=== PATIENT | male | born 1980 | race Caucasian/White ===

== ENCOUNTER 2017-11-29 16:43 | Observation (INO) | payer OTHER ==
--- NOTE | 2017-11-29 17:29 | ERPHSYRPT ---
- History of Present Illness Time Seen by Provider: 11/29/17 17:29 Source: patient, family Patient Subjective Stated Complaint: pt here to be checked out for alcohol abuse , pt is in AA and was sober for 4 days and started drinking today at 1pm pt has drank almost pint of whiskey today , pt was brought in by sister today, Triage Nursing Assessment: pt alert, resp easy, skin w/d, pt smells strongly of alcohol, pt denies wanting to harm self. pt is not wanting help today, he wants to keep family happy Physician History: 37 y/o alcoholic white male presents with "falling off the wagon" after 4 days of not consuming alcohol. after rn discussed with pt, pts sister and [facility], the story appears to be the following: pt told sister he is suicidal. behavioral health counselor at [facility] states pt was obviously intoxicated and would not answer questions except counselor states pt told her he was not suicidal or homicidal. pt was uncooperative at [facility]. pt arrives here alert, cooperative but intoxicated. pt states he is not suicidal or homicidal and needs to go home after visit for his employment. according behavioral health pt has been suicidal in the past. denies cp, abd pain, and denies soa Timing/Duration: today Severity of Symptoms-Max: mild Severity of Symptoms-Current: mild Context related to: other (alcohol) Associated Symptoms: other (intoxicated with alcohol with single statement of suicidalt thoughts to sister. denied to behavioral health counselor and to me) Allergies/Adverse Reactions: lobster Adverse Reaction (Uncoded 11/29/17 17:06) Home Medications: Clonazepam 0.5 mg [Klonopin 0.5 MG] 0.5 mg DAILY 11/29/17 [History] Sildenafil Citrate [Sildenafil] 20 mg DAILY 11/29/17 [History] Hx Influenza Vaccination/Date Given: No Hx Pneumococcal Vaccination/Date Given: No Immunizations Up to Date: Yes - Past Medical History Pertinent Past Medical History: Yes Neurological History: No Pertinent History ENT History: No Pertinent History Cardiac History: No Pertinent History, Hypertension Respiratory History: No Pertinent History Endocrine Medical History: No Pertinent History Musculoskeletal History: No Pertinent History GI Medical History: No Pertinent History History: No Pertinent History Psycho-Social History: Anxiety - Past Surgical History Past Surgical History: Yes Neuro Surgical History: No Pertinent History Cardiac: No Pertinent History Respiratory: No Pertinent History Gastrointestinal: No Pertinent History Genitourinary: No Pertinent History Musculoskeletal: No Pertinent History Male Surgical History: Vasectomy - Social History Smoking Status: Current every day smoker Exposure to second hand smoke: Yes Drug Use: none 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) - Review of Systems Constitutional: No Symptoms, No Fever, No Chills Eyes: No Symptoms, No Discharge, No Eye Pain Ears, Nose, & Throat: No Symptoms, No Ear Pain, No Ear Discharge Respiratory: No Symptoms, No Cough, No Dyspnea, No Stridor, No Wheezing Cardiac: No Symptoms, No Chest Pain, No Palpitations, No Syncope Abdominal/Gastrointestinal: No Symptoms, Abdominal Pain, No Nausea, No Vomiting , No Diarrhea Genitourinary Symptoms: No Symptoms, No Dysuria, No Frequency, No Hematuria Musculoskeletal: No Symptoms, No Back Pain, No Neck Pain Skin: No Symptoms Neurological: No Symptoms, No Dizziness, No Gait Changes, No Headache Psychological: Alcohol Abuse, Anxiety, Suicidal Ideations (denies now but mentioned to sister law researcher) Endocrine: No Symptoms Hematologic/Lymphatic: No Symptoms Immunological/Allergic: No Symptoms All Other Systems: Reviewed and Negative - Nursing Vital Signs Nursing Vital Signs: Initial Vital Signs Temperature 97.0 F 11/29/17 16:58 Pulse Rate 85 11/29/17 16:58 Respiratory Rate 16 11/29/17 16:58 Blood Pressure 144/84 11/29/17 16:58 O2 Sat by Pulse Oximetry 96 11/29/17 16:58 Pain Scale Pain Intensity 0 - Physical Exam General Appearance: no apparent distress, alert Eyes, Ears, Nose, Throat Exam: normal ENT inspection Neck Exam: normal inspection, non-tender, supple, full range of motion Respiratory Exam: normal breath sounds, lungs clear, airway intact, No chest tenderness, No respiratory distress, No accessory muscle use, No rhonchi, No wheezing, No stridor Cardiovascular Exam: regular rate/rhythm, normal heart sounds, normal peripheral pulses Gastrointestinal/Abdominal Exam: soft, No tenderness Extremities Exam: normal inspection, normal range of motion, No evidence of injury, No edema, No tenderness Current Suicidality: denies suicide plan Neurological Exam: alert, calm, adaptive physical education specialist II-XII nml as tested Appearance: appropriate appearance, appropriate insight, neat, no memory impairment Behavior/Eye Contact/Speech: alert & cooperative, good eye contact, intoxicated appearance Thoughts/Hallucinations: normal thought pattern, no apparent hallucination Skin Exam: normal color, warm, dry SpO2 Interpretation: normal SpO2: 96 Oxygen Delivery: Room Air - Course Nursing assessment & vital signs reviewed: Yes EKG Interpreted by Me: RATE (72), NORMAL AXIS, NORMAL INTERVALS, NORMAL QRS, NORMAL ST-T (no comparison) Ordered Tests: Active Orders 24 hr Category Date Time Status Clean Catch Urine Specimen STAT Care 11/29/17 17:39 Active EKG-ER Only STAT Care 11/29/17 17:39 Active Psychiatric Consult STAT Cons 11/29/17 17:40 Active ACETAMINOPHEN Stat Lab 11/29/17 17:50 Completed Alcohol [ETHYL ALCOHOL] Stat Lab 11/29/17 20:55 Completed CBC W DIFF Stat Lab 11/29/17 17:50 Completed CMP Stat Lab 11/29/17 17:50 Completed ETHYL ALCOHOL Stat Lab 11/29/17 17:50 Completed SALICYLATE Stat Lab 11/29/17 17:50 Completed UA W/RFX UR CULTURE Stat Lab 11/29/17 17:50 Completed Urine Triage Profile Stat Lab 11/29/17 17:50 Completed Transfer Order Routine Transfer 11/29/17 Ordered Medication Summary Discontinued Medications Generic Name Dose Route Start Last Admin Trade Name Muraliq PRN Reason Stop Dose Admin Lorazepam 1 mg 11/29/17 20:30 11/29/17 21:19 Ativan 2 Mg/1 Ml Vial IM 11/29/17 20:31 Not Given STAT ONE Lorazepam Confirm 11/29/17 21:03 Ativan 2 Mg/1 Ml Vial Administered 11/29/17 21:04 Dose 2 mg .ROUTE .STK-MED ONE Lorazepam 1 mg 11/29/17 21:12 11/29/17 21:19 Ativan 2 Mg/1 Ml Vial IV 11/29/17 21:13 1 mg STAT ONE Administration Ondansetron HCl 4 mg 11/29/17 17:39 11/29/17 18:57 Zofran Odt 4 Mg PO 11/29/17 17:40 4 mg STAT ONE Administration Ondansetron HCl Confirm 11/29/17 18:56 Zofran Odt 4 Mg Administered 11/29/17 18:57 Dose 4 mg .ROUTE .STK-MED ONE Lab/Rad Data: Laboratory Result Diagrams 11/29/17 17:50 11/29/17 17:50 Laboratory Results 11/29/17 11/29/17 11/29/17 Range/Units 20:55 17:50 17:50 WBC (4.0-10.5) K/mm3 RBC (4.1-5.6) M/mm3 Hgb (12.5-18.0) gm/dl Hct (42-50) % MCV (78-100) fl MCH (26-32) pg MCHC (32-36) g/dl RDW (11.5-14.0) % Plt Count (150-450) K/mm3 MPV (6-9.5) fl Gran % (36.0-66.0) % Eos # (Auto) (0-0.5) Absolute Lymphs (auto) (1.0-4.6) Absolute Monos (auto) (0.0-1.3) Lymphocytes % (24.0-44.0) % Monocytes % (0.0-12.0) % Eosinophils % (0.00-5.0) % Basophils % (0.0-0.4) % Absolute Granulocytes (1.4-6.9) Basophils # (0-0.4) Sodium (137-145) mmol/L Potassium (3.5-5.1) mmol/L Chloride (98-107) mmol/L Carbon Dioxide (22-30) mmol/L Anion Gap (5-15) MEQ/L BUN (9-20) mg/dL Creatinine (0.66-1.25) mg/dL Estimated GFR ML/MIN Glucose (74-106) mg/dL Calcium (8.4-10.2) mg/dL Total Bilirubin (0.2-1.3) mg/dL AST (17-59) U/L ALT (0-50) U/L Alkaline Phosphatase (38-126) U/L Serum Total Protein (6.3-8.2) g/dL Albumin (3.5-5.0) g/dL Urine Color YELLOW (YELLOW) Urine Appearance CLEAR (CLEAR) Urine pH 6.0 (5-6) Ur Specific [place] 1.013 (1.005-1.025) Urine Protein NEGATIVE (Negative) Urine Ketones NEGATIVE (NEGATIVE) Urine Blood NEGATIVE (0-5) Artie/ul Urine Nitrite NEGATIVE (NEGATIVE) Urine Bilirubin NEGATIVE (NEGATIVE) Urine Urobilinogen NEGATIVE (0-1) mg/dL Ur Leukocyte Esterase NEGATIVE (NEGATIVE) U Epithel Cells (Auto) NONE SEEN (FEW) /HPF Urine Culture Reflexed NO (NO) Urine Glucose NEGATIVE (NEGATIVE) mg/dL Salicylates (2-20) mg/dL Urine Opiates Level NEGATIVE (NEGATIVE) Ur Methadone NEGATIVE (NEGATIVE) Acetaminophen (10-30) ug/ml Urine Barbiturates NEGATIVE (NEGATIVE) Ur Phencyclidine (PCP) NEGATIVE (NEGATIVE) Urine Amphetamine NEGATIVE (NEGATIVE) U Benzodiazepine Level NEGATIVE (NEGATIVE) Urine Cocaine NEGATIVE (NEGATIVE) Urine Marijuana (THC) POSITIVE (NEGATIVE) Ethyl Alcohol 190 H (0-10) mg/dL 11/29/17 11/29/17 Range/Units 17:50 17:50 WBC 9.4 (4.0-10.5) K/mm3 RBC 5.05 (4.1-5.6) M/mm3 Hgb 17.6 (12.5-18.0) gm/dl Hct 50.3 H (42-50) % MCV 99.6 (78-100) fl MCH 34.9 H (26-32) pg MCHC 35.0 (32-36) g/dl RDW 12.9 (11.5-14.0) % Plt Count 211 (150-450) K/mm3 MPV 10.7 H (6-9.5) fl Gran % 68.3 H (36.0-66.0) % Eos # (Auto) 0.19 (0-0.5) Absolute Lymphs (auto) 1.96 (1.0-4.6) Absolute Monos (auto) 0.77 (0.0-1.3) Lymphocytes % 20.8 L (24.0-44.0) % Monocytes % 8.2 (0.0-12.0) % Eosinophils % 2.0 (0.00-5.0) % Basophils % 0.7 (0.0-0.4) % Absolute Granulocytes 6.44 (1.4-6.9) Basophils # 0.07 (0-0.4) Sodium 143 (137-145) mmol/L Potassium 4.0 (3.5-5.1) mmol/L Chloride 106 (98-107) mmol/L Carbon Dioxide 23 (22-30) mmol/L Anion Gap 17.9 H (5-15) MEQ/L BUN 6 L (9-20) mg/dL Creatinine 0.57 L (0.66-1.25) mg/dL Estimated GFR > 60.0 ML/MIN Glucose 155 H (74-106) mg/dL Calcium 9.3 (8.4-10.2) mg/dL Total Bilirubin 0.40 (0.2-1.3) mg/dL AST 102 H (17-59) U/L ALT 79 H (0-50) U/L Alkaline Phosphatase 139 H (38-126) U/L Serum Total Protein 8.0 (6.3-8.2) g/dL Albumin 4.7 (3.5-5.0) g/dL Urine Color (YELLOW) Urine Appearance (CLEAR) Urine pH (5-6) Ur Specific [place] (1.005-1.025) Urine Protein (Negative) Urine Ketones (NEGATIVE) Urine Blood (0-5) Artie/ul Urine Nitrite (NEGATIVE) Urine Bilirubin (NEGATIVE) Urine Urobilinogen (0-1) mg/dL Ur Leukocyte Esterase (NEGATIVE) U Epithel Cells (Auto) (FEW) /HPF Urine Culture Reflexed (NO) Urine Glucose (NEGATIVE) mg/dL Salicylates < 1.0 L (2-20) mg/dL Urine Opiates Level (NEGATIVE) Ur Methadone (NEGATIVE) Acetaminophen < 10 L (10-30) ug/ml Urine Barbiturates (NEGATIVE) Ur Phencyclidine (PCP) (NEGATIVE) Urine Amphetamine (NEGATIVE) U Benzodiazepine Level (NEGATIVE) Urine Cocaine (NEGATIVE) Urine Marijuana (THC) (NEGATIVE) Ethyl Alcohol 268 H (0-10) mg/dL - Progress Progress Note: 11/29/17 22:14 additional info provided by sig other when she arrived at 2130 she states he has been suicidal in past and has been stating all week he is suicidal. 11/29/17 22:42 call received from [facility] stating they will not evaluate him until blood etoh less than [address]. called [address] talley. i reviewed pt hx, condition, lab and ekg results. he accepts observation placement in icu, repeat labs in am, ivf and consult [facility] in am Counseled pt/family regarding: lab results, diagnosis - Departure Time of Disposition: 22:44 Departure Disposition: Observation Clinical Impression: Suicidal ideation, Chronic alcoholism Condition: Stable Critical Care Time: No Referrals: MAGDIEL RUSSELL NP [Primary Care Provider] -
[2017-11-29] MEDS ORDERED: ZOFRAN ODT 4 MG PO ONE (17:39)
[2017-11-29 18:01] LABS: Appearance CLEAR (CLEAR); Bilirubin NEGATIVE (NEGATIVE); Blood NEGATIVE Ery/ul (0-5); Glucose NEGATIVE (NEGATIVE); Ketones NEGATIVE (NEGATIVE); Leukocyte Esterase NEGATIVE (NEGATIVE); Nitrite NEGATIVE (NEGATIVE); Protein,Urine Dip NEGATIVE (Negative); Specific Gravity 1.013 (1.005-1.025); Urobilinogen NEGATIVE mg/dL (0-1)
[2017-11-29 18:02] LABS: BASOPHIL % 0.7 % (0.0-0.4); Basophil (Absolute #) 0.07 (0-0.4); Eosinophil (Absolute #) 0.19 (0-0.5); Granulocyte Absolute (ANC) 6.44 (1.4-6.9); Granulocytes % 68.3 % (36.0-66.0); Hematocrit 50.3 % (42-50); Hemoglobin 17.6 gm/dl (12.5-18.0); Lymphocyte (Absolute #) 1.96 (1.0-4.6); Lymphocytes % 20.8 % (24.0-44.0); Mean Cell Volume 99.6 fl (78-100); Mean Corpuscular Hemoglobin 34.9 pg (26-32); Mean Platelet Volume 10.7 fl (6-9.5); Monocyte (Absolute #) 0.77 (0.0-1.3); Monocytes % 8.2 % (0.0-12.0); Platelet Count 211 K/mm3 (150-450); Red Blood Count 5.05 M/mm3 (4.1-5.6); Red Cell Distribution Width 12.9 % (11.5-14.0); White Blood Count 9.4 K/mm3 (4.0-10.5)
[2017-11-29 18:14] LABS: Amphetamine,Urine NEGATIVE (NEGATIVE); Barbiturate,Urine NEGATIVE (NEGATIVE); Benzodiazepine,Urine NEGATIVE (NEGATIVE); Cocaine,Urine NEGATIVE (NEGATIVE); Methadone,Urine NEGATIVE (NEGATIVE); Opiate,Urine NEGATIVE (NEGATIVE); PCP,Urine NEGATIVE (NEGATIVE); THC,Urine POSITIVE (NEGATIVE)
[2017-11-29 18:15] LABS: ALBUMIN 4.7 g/dL (3.5-5.0); ALKALINE PHOSPHATASE 139 U/L (38-126); ANION GAP 17.9 MEQ/L (5-15); BLOOD UREA NITROGEN 6 mg/dL (9-20); CHLORIDE 106 mmol/L (98-107); Calcium 9.3 mg/dL (8.4-10.2); Carbon Dioxide 23 mmol/L (22-30); Creatinine 1 0.57 mg/dL (0.66-1.25); ETHYL ALCOHOL 268 mg/dL (0-10); Glucose 155 mg/dL (74-106); SGOT/AST 102 U/L (17-59); SGPT/ALT 79 U/L (0-50); SODIUM 143 mmol/L (137-145)
[2017-11-29 18:16] LABS: ACETAMINOPHEN < 10 ug/ml (10-30); SALICYLATE < 1.0 mg/dL (2-20)
[2017-11-29] MEDS ORDERED: ZOFRAN ODT 4 MG ONE (18:56)
[2017-11-29] MEDS ORDERED: Ativan 2 MG/1 ML VIAL IM ONE (20:30)
[2017-11-29] MEDS ORDERED: Ativan 2 MG/1 ML VIAL ONE (21:03)
[2017-11-29] MEDS ORDERED: Ativan 2 MG/1 ML VIAL IV ONE (21:12)
[2017-11-30] MEDS ORDERED: PROTONIX 40 MG IV IV SCH ×2 (00:16→22:00)
[2017-11-30] MEDS ORDERED: Zofran 4 MG/2 ML VIAL IV PRN (00:16)
[2017-11-30] MEDS ORDERED: Sodium Chloride 0.9% 1000 ML 1,000 ML ONE (00:49)
[2017-11-30] MEDS: Ativan 2 MG/1 ML VIAL IV PRN ×4 (00:56→15:08)
[2017-11-30] MEDS: Sodium Chloride 0.9% 1000 ML 1,000 ML IV SCH ×2 (01:04→11:29)
[2017-11-30 06:14] LABS: BASOPHIL % 0.9 % (0.0-0.4); Basophil (Absolute #) 0.05 (0-0.4); Eosinophil % 3.6 % (0.00-5.0); Eosinophil (Absolute #) 0.21 (0-0.5); Granulocyte Absolute (ANC) 3.19 (1.4-6.9); Granulocytes % 54.2 % (36.0-66.0); Hematocrit 48.1 % (42-50); Hemoglobin 16.4 gm/dl (12.5-18.0); Lymphocyte (Absolute #) 1.77 (1.0-4.6); Lymphocytes % 30.2 % (24.0-44.0); Mean Cell Volume 101.3 fl (78-100); Mean Corpuscular Hemoglobin 34.5 pg (26-32); Mean Corpuscular Hgb Concent. 34.1 g/dl (32-36); Mean Platelet Volume 10.8 fl (6-9.5); Monocyte (Absolute #) 0.65 (0.0-1.3); Monocytes % 11.1 % (0.0-12.0); Platelet Count 178 K/mm3 (150-450); Red Blood Count 4.75 M/mm3 (4.1-5.6); Red Cell Distribution Width 12.9 % (11.5-14.0); White Blood Count 5.9 K/mm3 (4.0-10.5)
[2017-11-30 06:52] LABS: ALBUMIN 3.7 g/dL (3.5-5.0); ALKALINE PHOSPHATASE 136 U/L (38-126); ANION GAP 13.2 MEQ/L (5-15); BLOOD UREA NITROGEN 7 mg/dL (9-20); CHLORIDE 106 mmol/L (98-107); Calcium 8.9 mg/dL (8.4-10.2); Carbon Dioxide 25 mmol/L (22-30); Creatinine 1 0.56 mg/dL (0.66-1.25); Glucose 123 mg/dL (74-106); SGOT/AST 77 U/L (17-59); SGPT/ALT 56 U/L (0-50); SODIUM 140 mmol/L (137-145); Total Protein 6.7 g/dL (6.3-8.2)
[2017-11-30] MEDS: Vitamins For Infusion 10 ML INJECTION*** 10 ML, THIAMINE 200 MG/2 ML*** 100 MG, FOLNATE... IV SCH ×8 (07:38→07:39)
--- NOTE | 2017-11-30 12:16 | PCM.SSS ---
History of Present Illness - Chief Complaint Chief Complaint: Suicidal ideation and chronic alcoholism History of Present Illness: is a 37 year old male who normally sees Marie PASCAL in the office. He has a longstanding history of alcohol abuse, he has tried to stop and been unsuccessful due to withdrawal symptoms, agitation and anxiety. He was intoxicated and feeling suicidal last night so came to the ER for evaluation. Today he is alert, has no complaints, denies suicidal ideation today but states those are always associated with intoxication. He appears to have guilt about his drinking and does express a desire to get help to stop drinking. - Review of Systems Constitutional: No Fever, No Chills Eyes: No Symptoms Respiratory: No Cough, No Short Of Breath Cardiac: No Chest Pain, No Edema, No Syncope Abdominal/Gastrointestinal: No Abdominal Pain, No Nausea, No Vomiting, No Diarrhea Genitourinary Symptoms: No Dysuria Skin: No Rash Psychological: Alcohol Abuse, Suicidal Ideations, No Hallucinations Medications & Allergies Home Medications: Home Medication List Clonazepam 0.5 mg [Klonopin 0.5 MG] 0.5 mg PO TID PRN 11/29/17 [History Confirmed 11/30/17] Allergies/Adverse Reactions: Allergies Allergy/AdvReac Type Severity Reaction Status Date / Time lobster AdvReac Uncoded 11/29/17 17:06 - Past Medical History Past Medical History: Yes Neurological History: No Pertinent History ENT History: No Pertinent History Cardiac History: Hypertension Respiratory History: No Pertinent History Endocrine Medical History: No Pertinent History Musculoskelatal History: No Pertinent History GI Medical History: GERD, Pancreatitis History: No Pertinent History Pyscho-Social History: Anxiety, Depression, Eating Disorders, Other - Past Surgical History Past Surgical History: Yes Neuro Surgical History: No Pertinent History Cardiac History: No Pertinent History Respiratory Surgery: No Pertinent History GI Surgical History: No Pertinent History Genitourinary Surgical Hx: No Pertinent History Musculskeletal Surgical Hx: No Pertinent History Male Surgical History: Vasectomy - Social History Smoking Status: Current every day smoker How long have you smoked: 22 Exposure to second hand smoke: No Alcohol: Heavy, Daily Drug Use: marijuana - Physical Exam Vital Signs: Vital Signs - 24 hr Temp Pulse Resp BP Pulse Ox 11/30/17 11:55 79 21 97 11/30/17 08:00 63 21 127/79 11/30/17 07:21 66 11/30/17 04:00 98.8 F 64 20 124/73 94 L 11/30/17 00:35 98.6 F 71 24 111/68 93 L 11/30/17 00:30 98.6 F 67 18 111/68 96 11/29/17 23:33 70 16 126/76 96 11/29/17 22:53 96 11/29/17 21:58 68 18 155/91 99 11/29/17 21:15 64 18 123/75 94 L 11/29/17 20:23 79 18 121/68 97 11/29/17 19:00 16 11/29/17 16:58 97.0 F 85 16 144/84 96 General Appearance: no apparent distress, alert Neurologic Exam: alert, oriented x 3, cooperative, normal mood/affect, nml cerebellar function, nml station & gait, sensation nml, No motor deficits Eye Exam: PERRL/EOMI, eyes nml inspection Respiratory Exam: normal breath sounds, lungs clear, No respiratory distress Cardiovascular Exam: regular rate/rhythm, normal heart sounds, normal peripheral pulses Gastrointestinal/Abdomen Exam: soft, normal bowel sounds, No tenderness, No mass Extremity Exam: normal inspection, normal range of motion, pelvis stable Skin Exam: normal color, warm, dry, No rash Results - Labs Lab/Micro Results: Lab Results-Last 24 Hours 11/29/17 11/29/17 11/29/17 Range/Units 17:50 17:50 17:50 WBC 9.4 (4.0-10.5) K/mm3 RBC 5.05 (4.1-5.6) M/mm3 Hgb 17.6 (12.5-18.0) gm/dl Hct 50.3 H (42-50) % MCV 99.6 (78-100) fl MCH 34.9 H (26-32) pg MCHC 35.0 (32-36) g/dl RDW 12.9 (11.5-14.0) % Plt Count 211 (150-450) K/mm3 MPV 10.7 H (6-9.5) fl Gran % 68.3 H (36.0-66.0) % Eos # (Auto) 0.19 (0-0.5) Absolute Lymphs (auto) 1.96 (1.0-4.6) Absolute Monos (auto) 0.77 (0.0-1.3) Lymphocytes % 20.8 L (24.0-44.0) % Monocytes % 8.2 (0.0-12.0) % Eosinophils % 2.0 (0.00-5.0) % Basophils % 0.7 (0.0-0.4) % Absolute Granulocytes 6.44 (1.4-6.9) Basophils # 0.07 (0-0.4) Sodium 143 (137-145) mmol/L Potassium 4.0 (3.5-5.1) mmol/L Chloride 106 (98-107) mmol/L Carbon Dioxide 23 (22-30) mmol/L Anion Gap 17.9 H (5-15) MEQ/L BUN 6 L (9-20) mg/dL Creatinine 0.57 L (0.66-1.25) mg/dL Estimated GFR > 60.0 ML/MIN Glucose 155 H (74-106) mg/dL Calcium 9.3 (8.4-10.2) mg/dL Total Bilirubin 0.40 (0.2-1.3) mg/dL AST 102 H (17-59) U/L ALT 79 H (0-50) U/L Alkaline Phosphatase 139 H (38-126) U/L Serum Total Protein 8.0 (6.3-8.2) g/dL Albumin 4.7 (3.5-5.0) g/dL Urine Color YELLOW (YELLOW) Urine Appearance CLEAR (CLEAR) Urine pH 6.0 (5-6) Ur Specific [place] 1.013 (1.005-1.025) Urine Protein NEGATIVE (Negative) Urine Ketones NEGATIVE (NEGATIVE) Urine Blood NEGATIVE (0-5) Artie/ul Urine Nitrite NEGATIVE (NEGATIVE) Urine Bilirubin NEGATIVE (NEGATIVE) Urine Urobilinogen NEGATIVE (0-1) mg/dL Ur Leukocyte Esterase NEGATIVE (NEGATIVE) U Epithel Cells (Auto) NONE SEEN (FEW) /HPF Urine Culture Reflexed NO (NO) Urine Glucose NEGATIVE (NEGATIVE) mg/dL Salicylates < 1.0 L (2-20) mg/dL Urine Opiates Level (NEGATIVE) Ur Methadone (NEGATIVE) Acetaminophen < 10 L (10-30) ug/ml Urine Barbiturates (NEGATIVE) Ur Phencyclidine (PCP) (NEGATIVE) Urine Amphetamine (NEGATIVE) U Benzodiazepine Level (NEGATIVE) Urine Cocaine (NEGATIVE) Urine Marijuana (THC) (NEGATIVE) Ethyl Alcohol 268 H (0-10) mg/dL 11/29/17 11/29/17 11/30/17 Range/Units 17:50 20:55 05:50 WBC 5.9 (4.0-10.5) K/mm3 RBC 4.75 (4.1-5.6) M/mm3 Hgb 16.4 (12.5-18.0) gm/dl Hct 48.1 (42-50) % MCV 101.3 H (78-100) fl MCH 34.5 H (26-32) pg MCHC 34.1 (32-36) g/dl RDW 12.9 (11.5-14.0) % Plt Count 178 (150-450) K/mm3 MPV 10.8 H (6-9.5) fl Gran % 54.2 (36.0-66.0) % Eos # (Auto) 0.21 (0-0.5) Absolute Lymphs (auto) 1.77 (1.0-4.6) Absolute Monos (auto) 0.65 (0.0-1.3) Lymphocytes % 30.2 (24.0-44.0) % Monocytes % 11.1 (0.0-12.0) % Eosinophils % 3.6 (0.00-5.0) % Basophils % 0.9 (0.0-0.4) % Absolute Granulocytes 3.19 (1.4-6.9) Basophils # 0.05 (0-0.4) Sodium (137-145) mmol/L Potassium (3.5-5.1) mmol/L Chloride (98-107) mmol/L Carbon Dioxide (22-30) mmol/L Anion Gap (5-15) MEQ/L BUN (9-20) mg/dL Creatinine (0.66-1.25) mg/dL Estimated GFR ML/MIN Glucose (74-106) mg/dL Calcium (8.4-10.2) mg/dL Total Bilirubin (0.2-1.3) mg/dL AST (17-59) U/L ALT (0-50) U/L Alkaline Phosphatase (38-126) U/L Serum Total Protein (6.3-8.2) g/dL Albumin (3.5-5.0) g/dL Urine Color (YELLOW) Urine Appearance (CLEAR) Urine pH (5-6) Ur Specific [place] (1.005-1.025) Urine Protein (Negative) Urine Ketones (NEGATIVE) Urine Blood (0-5) Artie/ul Urine Nitrite (NEGATIVE) Urine Bilirubin (NEGATIVE) Urine Urobilinogen (0-1) mg/dL Ur Leukocyte Esterase (NEGATIVE) U Epithel Cells (Auto) (FEW) /HPF Urine Culture Reflexed (NO) Urine Glucose (NEGATIVE) mg/dL Salicylates (2-20) mg/dL Urine Opiates Level NEGATIVE (NEGATIVE) Ur Methadone NEGATIVE (NEGATIVE) Acetaminophen (10-30) ug/ml Urine Barbiturates NEGATIVE (NEGATIVE) Ur Phencyclidine (PCP) NEGATIVE (NEGATIVE) Urine Amphetamine NEGATIVE (NEGATIVE) U Benzodiazepine Level NEGATIVE (NEGATIVE) Urine Cocaine NEGATIVE (NEGATIVE) Urine Marijuana (THC) POSITIVE (NEGATIVE) Ethyl Alcohol 190 H (0-10) mg/dL 11/30/17 11/30/17 Range/Units 05:50 05:50 WBC (4.0-10.5) K/mm3 RBC (4.1-5.6) M/mm3 Hgb (12.5-18.0) gm/dl Hct (42-50) % MCV (78-100) fl MCH (26-32) pg MCHC (32-36) g/dl RDW (11.5-14.0) % Plt Count (150-450) K/mm3 MPV (6-9.5) fl Gran % (36.0-66.0) % Eos # (Auto) (0-0.5) Absolute Lymphs (auto) (1.0-4.6) Absolute Monos (auto) (0.0-1.3) Lymphocytes % (24.0-44.0) % Monocytes % (0.0-12.0) % Eosinophils % (0.00-5.0) % Basophils % (0.0-0.4) % Absolute Granulocytes (1.4-6.9) Basophils # (0-0.4) Sodium 140 (137-145) mmol/L Potassium 4.0 (3.5-5.1) mmol/L Chloride 106 (98-107) mmol/L Carbon Dioxide 25 (22-30) mmol/L Anion Gap 13.2 (5-15) MEQ/L BUN 7 L (9-20) mg/dL Creatinine 0.56 L (0.66-1.25) mg/dL Estimated GFR > 60.0 ML/MIN Glucose 123 H (74-106) mg/dL Calcium 8.9 (8.4-10.2) mg/dL Total Bilirubin 0.60 (0.2-1.3) mg/dL AST 77 H (17-59) U/L ALT 56 H (0-50) U/L Alkaline Phosphatase 136 H (38-126) U/L Serum Total Protein 6.7 (6.3-8.2) g/dL Albumin 3.7 (3.5-5.0) g/dL Urine Color (YELLOW) Urine Appearance (CLEAR) Urine pH (5-6) Ur Specific [place] (1.005-1.025) Urine Protein (Negative) Urine Ketones (NEGATIVE) Urine Blood (0-5) Artie/ul Urine Nitrite (NEGATIVE) Urine Bilirubin (NEGATIVE) Urine Urobilinogen (0-1) mg/dL Ur Leukocyte Esterase (NEGATIVE) U Epithel Cells (Auto) (FEW) /HPF Urine Culture Reflexed (NO) Urine Glucose (NEGATIVE) mg/dL Salicylates (2-20) mg/dL Urine Opiates Level (NEGATIVE) Ur Methadone (NEGATIVE) Acetaminophen (10-30) ug/ml Urine Barbiturates (NEGATIVE) Ur Phencyclidine (PCP) (NEGATIVE) Urine Amphetamine (NEGATIVE) U Benzodiazepine Level (NEGATIVE) Urine Cocaine (NEGATIVE) Urine Marijuana (THC) (NEGATIVE) Ethyl Alcohol < 10 (0-10) mg/dL Assessment/Plan (1) Acute alcohol intoxication Current Visit: Yes Status: Acute Assessment & Plan: resolved ,pt is interested in help. Code(s): F10.929 - ALCOHOL USE, UNSPECIFIED WITH INTOXICATION, UNSPECIFIED (2) Suicidal ideation Current Visit: Yes Status: Acute Onset Date: ~11/30/17 Assessment & Plan: no current ideation/plan Code(s): R45.851 - SUICIDAL IDEATIONS (3) Chronic alcoholism Current Visit: Yes Status: Chronic Onset Date: ~11/30/17 Assessment & Plan: patient will need alcohol detox, transferring to [facility] when bed available for treatment. patient requires ambulance transport due to risk of seizure etc with ETOH withdrawal Code(s): F10.20 - ALCOHOL DEPENDENCE, UNCOMPLICATED Hospital Summary - Vitals & Intake/Output Vital Signs: Vital Signs Temperature 98.8 F 11/30/17 04:00 Pulse Rate 83 11/30/17 11:55 Respiratory Rate 21 11/30/17 11:55 Blood Pressure 127/79 11/30/17 08:00 O2 Sat by Pulse Oximetry 97 11/30/17 11:55 Intake & Output: Intake & Output 11/28/17 11/29/17 11/30/17 12/01/17 11:59 11:59 11:59 11:59 Intake Total 1544 Balance 1544 Weight 70.3 kg - Lab Result Diagrams: 11/30/17 05:50 11/30/17 05:50 Lab Results-Last 24 Hrs: Lab Results-Last 24 Hours 11/29/17 11/29/17 11/29/17 Range/Units 17:50 17:50 17:50 WBC 9.4 (4.0-10.5) K/mm3 RBC 5.05 (4.1-5.6) M/mm3 Hgb 17.6 (12.5-18.0) gm/dl Hct 50.3 H (42-50) % MCV 99.6 (78-100) fl MCH 34.9 H (26-32) pg MCHC 35.0 (32-36) g/dl RDW 12.9 (11.5-14.0) % Plt Count 211 (150-450) K/mm3 MPV 10.7 H (6-9.5) fl Gran % 68.3 H (36.0-66.0) % Eos # (Auto) 0.19 (0-0.5) Absolute Lymphs (auto) 1.96 (1.0-4.6) Absolute Monos (auto) 0.77 (0.0-1.3) Lymphocytes % 20.8 L (24.0-44.0) % Monocytes % 8.2 (0.0-12.0) % Eosinophils % 2.0 (0.00-5.0) % Basophils % 0.7 (0.0-0.4) % Absolute Granulocytes 6.44 (1.4-6.9) Basophils # 0.07 (0-0.4) Sodium 143 (137-145) mmol/L Potassium 4.0 (3.5-5.1) mmol/L Chloride 106 (98-107) mmol/L Carbon Dioxide 23 (22-30) mmol/L Anion Gap 17.9 H (5-15) MEQ/L BUN 6 L (9-20) mg/dL Creatinine 0.57 L (0.66-1.25) mg/dL Estimated GFR > 60.0 ML/MIN Glucose 155 H (74-106) mg/dL Calcium 9.3 (8.4-10.2) mg/dL Total Bilirubin 0.40 (0.2-1.3) mg/dL AST 102 H (17-59) U/L ALT 79 H (0-50) U/L Alkaline Phosphatase 139 H (38-126) U/L Serum Total Protein 8.0 (6.3-8.2) g/dL Albumin 4.7 (3.5-5.0) g/dL Urine Color YELLOW (YELLOW) Urine Appearance CLEAR (CLEAR) Urine pH 6.0 (5-6) Ur Specific [place] 1.013 (1.005-1.025) Urine Protein NEGATIVE (Negative) Urine Ketones NEGATIVE (NEGATIVE) Urine Blood NEGATIVE (0-5) Artie/ul Urine Nitrite NEGATIVE (NEGATIVE) Urine Bilirubin NEGATIVE (NEGATIVE) Urine Urobilinogen NEGATIVE (0-1) mg/dL Ur Leukocyte Esterase NEGATIVE (NEGATIVE) U Epithel Cells (Auto) NONE SEEN (FEW) /HPF Urine Culture Reflexed NO (NO) Urine Glucose NEGATIVE (NEGATIVE) mg/dL Salicylates < 1.0 L (2-20) mg/dL Urine Opiates Level (NEGATIVE) Ur Methadone (NEGATIVE) Acetaminophen < 10 L (10-30) ug/ml Urine Barbiturates (NEGATIVE) Ur Phencyclidine (PCP) (NEGATIVE) Urine Amphetamine (NEGATIVE) U Benzodiazepine Level (NEGATIVE) Urine Cocaine (NEGATIVE) Urine Marijuana (THC) (NEGATIVE) Ethyl Alcohol 268 H (0-10) mg/dL 11/29/17 11/29/17 11/30/17 Range/Units 17:50 20:55 05:50 WBC 5.9 (4.0-10.5) K/mm3 RBC 4.75 (4.1-5.6) M/mm3 Hgb 16.4 (12.5-18.0) gm/dl Hct 48.1 (42-50) % MCV 101.3 H (78-100) fl MCH 34.5 H (26-32) pg MCHC 34.1 (32-36) g/dl RDW 12.9 (11.5-14.0) % Plt Count 178 (150-450) K/mm3 MPV 10.8 H (6-9.5) fl Gran % 54.2 (36.0-66.0) % Eos # (Auto) 0.21 (0-0.5) Absolute Lymphs (auto) 1.77 (1.0-4.6) Absolute Monos (auto) 0.65 (0.0-1.3) Lymphocytes % 30.2 (24.0-44.0) % Monocytes % 11.1 (0.0-12.0) % Eosinophils % 3.6 (0.00-5.0) % Basophils % 0.9 (0.0-0.4) % Absolute Granulocytes 3.19 (1.4-6.9) Basophils # 0.05 (0-0.4) Sodium (137-145) mmol/L Potassium (3.5-5.1) mmol/L Chloride (98-107) mmol/L Carbon Dioxide (22-30) mmol/L Anion Gap (5-15) MEQ/L BUN (9-20) mg/dL Creatinine (0.66-1.25) mg/dL Estimated GFR ML/MIN Glucose (74-106) mg/dL Calcium (8.4-10.2) mg/dL Total Bilirubin (0.2-1.3) mg/dL AST (17-59) U/L ALT (0-50) U/L Alkaline Phosphatase (38-126) U/L Serum Total Protein (6.3-8.2) g/dL Albumin (3.5-5.0) g/dL Urine Color (YELLOW) Urine Appearance (CLEAR) Urine pH (5-6) Ur Specific [place] (1.005-1.025) Urine Protein (Negative) Urine Ketones (NEGATIVE) Urine Blood (0-5) Artie/ul Urine Nitrite (NEGATIVE) Urine Bilirubin (NEGATIVE) Urine Urobilinogen (0-1) mg/dL Ur Leukocyte Esterase (NEGATIVE) U Epithel Cells (Auto) (FEW) /HPF Urine Culture Reflexed (NO) Urine Glucose (NEGATIVE) mg/dL Salicylates (2-20) mg/dL Urine Opiates Level NEGATIVE (NEGATIVE) Ur Methadone NEGATIVE (NEGATIVE) Acetaminophen (10-30) ug/ml Urine Barbiturates NEGATIVE (NEGATIVE) Ur Phencyclidine (PCP) NEGATIVE (NEGATIVE) Urine Amphetamine NEGATIVE (NEGATIVE) U Benzodiazepine Level NEGATIVE (NEGATIVE) Urine Cocaine NEGATIVE (NEGATIVE) Urine Marijuana (THC) POSITIVE (NEGATIVE) Ethyl Alcohol 190 H (0-10) mg/dL 11/30/17 11/30/17 Range/Units 05:50 05:50 WBC (4.0-10.5) K/mm3 RBC (4.1-5.6) M/mm3 Hgb (12.5-18.0) gm/dl Hct (42-50) % MCV (78-100) fl MCH (26-32) pg MCHC (32-36) g/dl RDW (11.5-14.0) % Plt Count (150-450) K/mm3 MPV (6-9.5) fl Gran % (36.0-66.0) % Eos # (Auto) (0-0.5) Absolute Lymphs (auto) (1.0-4.6) Absolute Monos (auto) (0.0-1.3) Lymphocytes % (24.0-44.0) % Monocytes % (0.0-12.0) % Eosinophils % (0.00-5.0) % Basophils % (0.0-0.4) % Absolute Granulocytes (1.4-6.9) Basophils # (0-0.4) Sodium 140 (137-145) mmol/L Potassium 4.0 (3.5-5.1) mmol/L Chloride 106 (98-107) mmol/L Carbon Dioxide 25 (22-30) mmol/L Anion Gap 13.2 (5-15) MEQ/L BUN 7 L (9-20) mg/dL Creatinine 0.56 L (0.66-1.25) mg/dL Estimated GFR > 60.0 ML/MIN Glucose 123 H (74-106) mg/dL Calcium 8.9 (8.4-10.2) mg/dL Total Bilirubin 0.60 (0.2-1.3) mg/dL AST 77 H (17-59) U/L ALT 56 H (0-50) U/L Alkaline Phosphatase 136 H (38-126) U/L Serum Total Protein 6.7 (6.3-8.2) g/dL Albumin 3.7 (3.5-5.0) g/dL Urine Color (YELLOW) Urine Appearance (CLEAR) Urine pH (5-6) Ur Specific [place] (1.005-1.025) Urine Protein (Negative) Urine Ketones (NEGATIVE) Urine Blood (0-5) Artie/ul Urine Nitrite (NEGATIVE) Urine Bilirubin (NEGATIVE) Urine Urobilinogen (0-1) mg/dL Ur Leukocyte Esterase (NEGATIVE) U Epithel Cells (Auto) (FEW) /HPF Urine Culture Reflexed (NO) Urine Glucose (NEGATIVE) mg/dL Salicylates (2-20) mg/dL Urine Opiates Level (NEGATIVE) Ur Methadone (NEGATIVE) Acetaminophen (10-30) ug/ml Urine Barbiturates (NEGATIVE) Ur Phencyclidine (PCP) (NEGATIVE) Urine Amphetamine (NEGATIVE) U Benzodiazepine Level (NEGATIVE) Urine Cocaine (NEGATIVE) Urine Marijuana (THC) (NEGATIVE) Ethyl Alcohol < 10 (0-10) mg/dL - Discharge Disposition: DC TO OTHER HOSP Condition: Stable Prescriptions: No Action Clonazepam 0.5 mg [Klonopin 0.5 MG] 0.5 mg PO TID PRN PRN Reason: Anxiety
[2017-11-30] MEDS ORDERED: Nicoderm CQ 21 MG TOP ONE (13:37)
[2017-11-30 17:31] VITALS: BP 147/82; PULSE 72; O2SAT 18
== END 2017-11-30 17:32 ==
LOC: ED 16:43 → ICU 11-30 00:11 → INTOOBSV 11-30 00:11
PROVIDERS: ADMIT Family Medicine; ATTEND Family Medicine
DX: F10.929 Alcohol use, unspecified with intoxication, unspecified (principal); R45.851 Suicidal ideations; F10.20 Alcohol dependence, uncomplicated; I10 Essential (primary) hypertension; F41.8 Other specified anxiety disorders
CPT/HCPCS: 36000; 36415; 80053; 80307; 81003; 85025; 90791; 93005; 96374; 99285; G0481; 93268; J2060; Q0162; Q3014; A9270-GY; G0378; G0480